=== PATIENT | female | born 1975 | race Caucasian/White ===

== ENCOUNTER 2016-03-25 12:48 | Day surgery (SDC) | payer OTHER, MEDICAID ==
[2016-03-25] MEDS ORDERED: MIDAZOLAM 2 MG/2 ML VIAL ONE (14:31)
[2016-03-25] MEDS ORDERED: fentaNYL 100 MCG/2 ML INJ ONE (14:31)
[2016-03-25] MEDS ORDERED: TRIAMCINOLONE ACETONIDE 200 MG/5 ML MDV IM ONE (15:22)
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
== END 2016-03-25 16:30 | disposition home or self-care (01) ==
LOC: FIMAGING 12:48
PROVIDERS: ATTEND Registered Nurse
PROC: 3E0S3BZ Introduction of Anesthetic Agent into Epidural Space, Percutaneous Approach (ICD-10-PCS; principal; 2016-03-25 15:30)
DX: M47.22 Other spondylosis with radiculopathy, cervical region (principal); G89.4 Chronic pain syndrome; F32.9 Major depressive disorder, single episode, unspecified; G40.909 Epilepsy, unspecified, not intractable, without status epilepticus; R51 Headache; M12.88 Other specific arthropathies, not elsewhere classified, other specified site; M54.6 Pain in thoracic spine; Q05.9 Spina bifida, unspecified
CPT/HCPCS: 0228T; 99152; J2250; J3010; J3301

== ENCOUNTER 2016-09-23 12:00 | Day surgery (SDC) | payer OTHER, MEDICAID ==
[2016-09-23 13:16] VITALS: PULSE 109
[2016-09-23] MEDS ORDERED: LR 1,000 ML IV ONE (13:49)
--- NOTE | 2016-09-23 15:05 | PDANEPAE ---
ANE Past Medical History - Cardiovascular History Hx Hypertension: No Hx Arrhythmias: No Hx Chest Pain: No Hx Coronary Artery / Peripheral Vascular Disease: No Hx CHF / Valvular Disease: No Hx Palpitations: No - Pulmonary History Hx COPD: No Hx Asthma/Reactive Airway Disease: No Hx Recent Upper Respiratory Infection: No Hx Oxygen in Use at Home: No Hx Sleep Apnea: No Sleep Apnea Screening Result - Last Documented: Negative - Neurologic History Hx Cerebrovascular Accident: Yes Hx Seizures: Yes Hx Dementia: No Neurologic History Comment: headaches. executive vp shunt. seizures- last one was a few months ago per mother. chiari malformation. spina bifida. CERVICAL RADICULOPATHY - Endocrine History Hx Diabetes: No - Renal History Hx Renal Disorders: Yes Renal History Comment: SELF CATHS - Liver History Hx Hepatic Disorders: No - Neurological & Psychiatric Hx Hx Neurological and Psychiatric Disorders: Yes Neurological / Psychiatric History Comment: depression. anxiety. was seeing pain management phychiatrist for awhile but they closed - Cancer History Hx Cancer: No - Congenital Disorder History Hx Congenital Disorders: Yes Congenital History Comment: SPINA BIFIDA. HYDROCEPHALUS - GI History Hx Gastrointestinal Disorders: Yes Gastrointestinal History Comment: colostomy. gerd - Other Health History Other Health History: CHRONIC PAIN SYNDROME - Chronic Pain History Chronic Pain: Yes (back) - Surgical History Prior Surgeries: AV SHUNT WITH MULTIPLE REVISIONS. C-SPINE X2 WITH FUSION. COLOSTOMY FOR STOOL INCONT. BLADDER RECONSTRUCTION FOR SELF CATHING. APPENDECTOMY. TONSILLECTOMY. UMBILICAL HERNIA. BRAIN HEMORRHAGE X 2 03/2013. PORT ANE Review of Systems - Exercise capacity METS (RN): 1 METS - Systems Neurological: Reports: seizure (Last seizure 3 mos ago (partial complex)) ANE Patient History - Allergies Allergies/Adverse Reactions: latex [Latex] Allergy (Severe, Verified 09/11/16 10:35) Anaphylaxis adhesive tape Allergy (Intermediate, Verified 09/11/16 10:35) BLISTERS vancomycin [Vancomycin] Allergy (Intermediate, Verified 09/11/16 10:35) Red Man Syndrome - Home Medications Home Medications: Acetaminophen [Tylenol 325mg (*)] 650 mg PO Q4H PRN 01/29/16 [Last Taken 01:00] Cyclobenzaprine [Flexeril 10 MG (*)] 10 mg PO TID PRN 01/29/16 [Last Taken 09/23 01:00] Gabapentin [Neurontin 300 MG (*)] 300 mg PO BID@10,12 01/29/16 [Last Taken 09/23 10:00] Herbals/Supplements -Info Only 2 ea PO DAILY 01/29/16 [Last Taken 05/27/16] Loperamide HCl [Imodium 2 mg (*)] 2 - 4 mg PO ONCE PRN 01/29/16 [Last Taken ] Omeprazole 40 mg PO BID 01/29/16 [Last Taken 09/23/16 10:00] Ranitidine HCl [Zantac] 150 mg PO BID PRN 01/29/16 [Last Taken 09/23/16 10:00] carBAMazepine ER [Carbatrol (*)] 600 mg PO DAILY 01/29/16 [Last Taken 09/23/16 10:00] carBAMazepine ER [TEGretol XR] 400 mg PO HS 01/29/16 [Last Taken 09/22/16 22:00] Pseudoephedrine HCl 30 mg PO DAILY PRN 03/22/16 [Last Taken 09/02/16] Dicyclomine 09/11/16 [Last Taken 09/23/16 01:00] Midol 09/11/16 [Last Taken 09/02/16] Zoloft 100mg (*) 200 mg PO DAILY 09/11/16 [Last Taken 09/23/16 10:00] - NPO status NPO Since - Liquids (Date): 09/23/16 NPO Since - Liquids (Time): 10:00 NPO Since - Solids (Date): 09/22/16 NPO Since - Solids (Time): 20:00 - Smoking Hx Smoking Status: Never smoked - Family Anes Hx Family Hx Anesthesia Complications: none ANE Labs/Vital Signs - Vital Signs Blood Pressure: 117/94 Heart Rate: 109 Respiratory Rate: 18 O2 Sat (%): 94 Height: 144.78 cm Weight: 86.183 kg ANE Physical Exam - Airway Neck exam: FROM Mallampati Score: Class 3 Mouth exam: normal dental/mouth exam - Pulmonary Pulmonary: no respiratory distress, no rales or rhonchi, clear to auscultation - Cardiovascular Cardiovascular: regular rate and rhythym, no murmur, rub, or gallop - ASA Status ASA Status: III ANE Anesthesia Plan Anesthesia Plan: MAC
[2016-09-23] MEDS ORDERED: INDOMETHACIN 50 MG SUPP PR PRN (15:06)
--- NOTE | 2016-09-23 15:06 | PDGENHP ---
History & Physical Chief Complaint: dysphagia, epigastric abdominal pain History of Present Illness: 40 year old female presents for evaluation of epigastirc abdominal pain. Worsened with oral intake. No alleviating fx. + dysphagia to pills. Pertinent Past, Social, Family History: PMHx: spina Bifiday Relevant Physical Exam: HEENT: anicteric,. CV: RRR +s1s2. Lungs: clear. Abd: soft, nt Cardiorespiratory Assessment: ASA 3
[2016-09-23] MEDS ORDERED: fentaNYL 100 MCG/2 ML INJ IVP PRN (15:07)
[2016-09-23] MEDS ORDERED: ONDANSETRON 4 MG/2 ML VIAL IVP PRN (15:07)
[2016-09-23] MEDS ORDERED: LR 500 ML IV PRN (15:07)
[2016-09-23] MEDS ORDERED: NALOXONE HCL 0.4 MG/ML INJ IVP PRN (15:07)
[2016-09-23] MEDS ORDERED: PROPOFOL 200 MG/20 ML VIAL ONE ×2 (15:09→15:19)
[2016-09-23] MEDS ORDERED: NS 500 ML IV SCH (15:15)
--- NOTE | 2016-09-23 15:37 | POSTANESTH ---
Post Anesthetic Evaluation Cardiovascular Status: Normal, Stable, Similar to Pre-Op Cond Respiratory Status: Normal, Stable, Similar to Pre-op Cond. Level of Consciousness/Mental Status: Can Participate in Eval, Moderately Sleepy Pain Control: Adequate, Prn Tx Ordered Nausea/Vomiting Control: Adequate, Prn Tx Ordered Complications Possibly Related to Anesthesia: None Noted
[2016-09-23 15:53] VITALS: BP 121/82
[2016-09-23 16:15] VITALS: RESP 23
[2016-09-23 16:18] VITALS: TEMP 98.1
[2016-09-23 17:13] VITALS: O2SAT 98
--- NOTE | 2016-09-24 03:10 | GPN ---
[f rep st] PROCEDURE NOTE DATE OF PROCEDURE: 09/23/2016 PROCEDURE: Esophagogastroduodenoscopy with dilation, biopsy. INDICATION: The patient is a 40-year-old female with history of spina bifida, who presents with epi gastric abdominal pain as well as dysphagia to pills. She presents for further evaluation. CONSENT: Risks, benefits, alternatives of the procedure were discussed in great detail with the pat ient. Risks of infection, bleeding, perforation, sedation were discussed. As above insignificant. ESOPHAGOGASTRODUODENOSCOPY EXAMINATION: An Olympus upper endoscope was introduced via the mouth and advanced to the esophagus. The proximal and distal esophagus were normal in appearance. Biopsies were taken of mid esophagus on the way out. The gastric junction was empirically dilated through th e scope dilating balloon with 15-18 mm. This was pulled through the esophagus. The stomach was entered and closely examined, including retroflexed views of the angularis, cardia, and fundus. The patient was noted to have erythematous mucosa in the antrum and the body of the sto mach in patchy distribution and biopsies were taken. In the gastric cardia and fundus multiple sessile diminutive polyps seen and were biopsied. The duodenal bulb and second portion of the duodenum were normal in appearance. Biopsies were taken to rule out celiac sprue. IMPRESSION: 1. Empiric dilation of the esophagus. 2. Biopsies taken to rule out eosinophilic esophagitis. 3. Gastritis, status post biopsy. 4. Process biopsies. 5. Biopsies taken to rule out celiac sprue. RECOMMENDATIONS: 1. Await biopsy results. 2. Consider PPI therapy. 3. Follow up with Chio Viveros in our office in 3 weeks as directed. /[id number]/MODL
== END 2016-09-23 18:15 | disposition home or self-care (01) ==
LOC: FSGY 12:00
PROVIDERS: ATTEND Internal Medicine Gastroenterology
PROC: 0D748ZZ Dilation of Esophagogastric Junction, Via Natural or Artificial Opening Endoscopic (ICD-10-PCS; principal; 2016-09-23 13:30)
PROC: 0DB98ZX Excision of Duodenum, Via Natural or Artificial Opening Endoscopic, Diagnostic (ICD-10-PCS; principal; 2016-09-23 13:30)
PROC: 0DB68ZX Excision of Stomach, Via Natural or Artificial Opening Endoscopic, Diagnostic (ICD-10-PCS; principal; 2016-09-23 13:30)
DX: K29.70 Gastritis, unspecified, without bleeding (principal); K31.7 Polyp of stomach and duodenum; R13.10 Dysphagia, unspecified; Q05.3 Sacral spina bifida with hydrocephalus; G40.909 Epilepsy, unspecified, not intractable, without status epilepticus; K59.00 Constipation, unspecified
CPT/HCPCS: 43239; 43249; C1726; J1642; J2704

== ENCOUNTER → 2017-03-27 | Outpatient (CLI) | payer OTHER, MEDICAID | LOC: FIMAGING 09:07 | PROVIDERS: ATTEND Family Medicine | DX: M46.94 Unspecified inflammatory spondylopathy, thoracic region (principal); M47.894 Other spondylosis, thoracic region ==

== ENCOUNTER 2017-04-16 12:59 | Day surgery (SDC) | payer OTHER, MEDICAID ==
[2017-04-16] MEDS ORDERED: MIDAZOLAM 2 MG/2 ML VIAL IVP PRN (13:35)
[2017-04-16] MEDS ORDERED: PROTAMINE SULFATE 50 MG/5 ML VIAL IVP PRN (13:35)
[2017-04-16] MEDS ORDERED: GLUCAGON HCL 1 MG VIAL IVP PRN (13:35)
[2017-04-16] MEDS ORDERED: NALOXONE HCL 0.4 MG/ML INJ IVP PRN (13:35)
[2017-04-16] MEDS ORDERED: FLUMAZENIL 0.5 MG/5 ML MDV IVP PRN (13:35)
[2017-04-16] MEDS ORDERED: MEPERIDINE 25 MG/ML SYR IVP PRN (13:35)
[2017-04-16] MEDS ORDERED: fentaNYL 100 MCG/2 ML INJ IVP PRN (13:35)
[2017-04-16] MEDS ORDERED: NS 1,000 ML IV SCH (13:45)
[2017-04-16 14:26] VITALS: TEMP 100
--- NOTE | 2017-04-16 15:40 | PDPROPOC ---
Sedation Plan of Care Sedation Plan of Care: vital signs stable, mental status noted, patient educated of risks, benefits, alternatives, patient can tolerate sedation ASA Classification: ASA 3 Planned drugs: fentanyl, midazolam Mallampati Score: Class 2 Mallampati Reference Image: Patient passed 3-3-2 rule?: Yes
--- NOTE | 2017-04-16 15:41 | PDGENHP ---
History & Physical Chief Complaint: RECURRENT BACK PAIN History of Present Illness: RECURRENT MID BACK PAIN Pertinent Past, Social, Family History: SPINA BIFIDA Relevant Physical Exam: ALERT AND ORIENTED. Cardiorespiratory Assessment: RRR, CTA
[2017-04-16] MEDS ORDERED: MIDAZOLAM 2 MG/2 ML VIAL ONE (16:08)
[2017-04-16] MEDS ORDERED: fentaNYL 100 MCG/2 ML INJ ONE (16:09)
[2017-04-16] MEDS ORDERED: LIDOCAINE 1% 300 MG/30 ML SDV ONE (16:38)
[2017-04-16] MEDS ORDERED: TRIAMCINOLONE ACETONIDE 200 MG/5 ML MDV IM ONE (16:39)
[2017-04-16] MEDS ORDERED: ONDANSETRON 4 MG/2 ML VIAL IVP PRN (17:00)
--- NOTE | 2017-04-16 17:01 | PDRADPN ---
Radiology Procedure Note Date of Procedure: 04/16/17 Radiologist: Remedios Mora Anesthesia: IV Sedation Pre-op Diagnosis: back pain Post-op Diagnosis: same Indication: back pain Procedure: T7-8 mayra Finding(s): MAYRA covered T6-9 Inf/Abcess present in the surg proc area at time of surgery?: No Complications: none
[2017-04-16 17:04] VITALS: PULSE 105
[2017-04-16 17:26] VITALS: RESP 13
[2017-04-16 17:37] VITALS: BP 120/96; O2SAT 97
== END 2017-04-16 18:09 | disposition home or self-care (01) ==
LOC: FIMAGING 12:59 → MERGE 13:00 → FIMAGING 18:09
PROVIDERS: ATTEND Radiology Diagnostic Radiology
DX: M54.6 Pain in thoracic spine (principal); Q05.9 Spina bifida, unspecified
CPT/HCPCS: J1642; J2250; J3010; J3301

== ENCOUNTER → 2017-05-16 | Outpatient (CLI) | payer OTHER, MEDICAID | LOC: FIMAGING 10:34 | PROVIDERS: ATTEND Physician Assistant | DX: K82.8 Other specified diseases of gallbladder (principal) | CPT/HCPCS: 78227; A9537; J1642 ==

== ENCOUNTER 2017-05-26 19:00 | Emergency (ER) | payer OTHER, MEDICAID ==
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
[2017-05-26] MEDS ORDERED: HYDROCODONE/APAP 5/325 TAB ONE (20:15)
[2017-05-26] MEDS ORDERED: HYDROCODONE/APAP 5/325 TAB PO ONE (20:16)
[2017-05-26 20:17] VITALS: BP 128/96
== END 2017-05-26 20:29 | disposition home or self-care (01) ==
LOC: EDUNIT#
DX: S09.90XA Unspecified injury of head, initial encounter (principal); S16.1XXA Strain of muscle, fascia and tendon at neck level, initial encounter; Z91.040 Latex allergy status; W22.8XXA Striking against or struck by other objects, initial encounter

== ENCOUNTER → 2017-05-30 | Outpatient (CLI) | payer OTHER, MEDICAID | LOC: FIMAGING 08:53 | PROVIDERS: ATTEND Surgery | DX: R10.11 Right upper quadrant pain (principal); K82.4 Cholesterolosis of gallbladder ==

== ENCOUNTER → 2017-06-09 | Outpatient (CLI) | payer OTHER, MEDICAID ==
[~2017-06-09] MED LIST: IOPAMIDOL (ISOVUE-300) 100 ML BTL ONE
== END ==
LOC: FIMAGING 09:01
PROVIDERS: ATTEND Surgery
DX: N21.0 Calculus in bladder (principal); R19.02 Left upper quadrant abdominal swelling, mass and lump; K43.5 Parastomal hernia without obstruction or gangrene
CPT/HCPCS: 74177; Q9967

== ENCOUNTER 2017-06-24 09:22 | Inpatient (IN) | payer OTHER, MEDICAID ==
[~2017-06-24 09:22] MED LIST changes: -IOPAMIDOL (ISOVUE-300) 100 ML BTL ONE; +cefOXitin SODIUM 2 GM in STERILE WATER INJ 21 ML IV ONE
[2017-06-24] MEDS ORDERED: BUPIVACAINE 0.5% 30 ML SDV ONE (09:56)
[2017-06-24] MEDS ORDERED: fentaNYL 100 MCG/2 ML INJ ONE ×4 (10:55→14:21)
[2017-06-24] MEDS ORDERED: PROPOFOL 200 MG/20 ML VIAL ONE ×2 (10:55→10:56)
[2017-06-24] MEDS ORDERED: ROCURONIUM 50 MG/5 ML VIAL ONE ×2 (10:59→12:39)
[2017-06-24] MEDS ORDERED: LIDOCAINE 2% 5 ML SDV ONE (11:00)
[2017-06-24] MEDS ORDERED: LR 1,000 ML IV ONE (11:04)
--- NOTE | 2017-06-24 11:11 | PDHPUP ---
History & Physical Update H&P update statement: This history and physical update is based on an assessment of the patient which was completed after admission or registration (within 24 hours), but prior to the surgery/procedure. H&P update: H&P reviewed & patient examined, no change in patient's condition since H&P completed
[2017-06-24] MEDS ORDERED: MIDAZOLAM 2 MG/2 ML VIAL ONE (11:25)
[2017-06-24] MEDS ORDERED: DEXAMETHASONE 4 MG/ML VIAL ONE (11:46)
[2017-06-24] MEDS ORDERED: ESMOLOL HCL 100 MG/10 ML VIAL IV ONE (11:50)
[2017-06-24] MEDS ORDERED: MIDAZOLAM 2 MG/2 ML VIAL IVP ONE (11:51)
--- NOTE | 2017-06-24 11:57 | PDANEPAE ---
ANE History of Present Illness parastomal hernia repair ANE Past Medical History - Cardiovascular History Hx Hypertension: No Hx Arrhythmias: No Hx Chest Pain: No Hx Coronary Artery / Peripheral Vascular Disease: No Hx CHF / Valvular Disease: No Hx Palpitations: No - Pulmonary History Hx COPD: No Hx Asthma/Reactive Airway Disease: No Hx Recent Upper Respiratory Infection: No Hx Oxygen in Use at Home: No Hx Sleep Apnea: No Sleep Apnea Screening Result - Last Documented: Negative - Neurologic History Hx Cerebrovascular Accident: No Hx Seizures: Yes Hx Dementia: No Neurologic History Comment: Shunt, seizure disorder, stroke from last shunt revision-hemorrhaging 2014 - Endocrine History Hx Diabetes: No - Renal History Hx Renal Disorders: Yes Renal History Comment: "port" catheter, bladder augmentations- Pt does self- cath w/straight caths - - Liver History Hx Hepatic Disorders: No - Neurological & Psychiatric Hx Hx Neurological and Psychiatric Disorders: Yes Neurological / Psychiatric History Comment: depression, emotionally delayed, some cognitive impairment per pt's mother. - Cancer History Hx Cancer: No - Congenital Disorder History Hx Congenital Disorders: Yes Congenital History Comment: spina bifida - GI History Hx Gastrointestinal Disorders: Yes Gastrointestinal History Comment: GERD;hernia at colostomy stoma site. - Other Health History Other Health History: CHRONIC PAIN SYNDROME- tx w/Gabapentin and muscle relaxant. - Chronic Pain History Chronic Pain: Yes (spine) - Surgical History Prior Surgeries: previous epidural injections,numerous shunt repairs/revisions , hernia repairs, hydrocephalus, bladder repair, colostomy placement ANE Review of Systems Review of Systems: - Exercise capacity METS (RN): 2 METS ANE Patient History - Allergies Allergies/Adverse Reactions: latex [Latex] Allergy (Severe, Verified 09/11/16 10:35) Anaphylaxis adhesive tape Allergy (Intermediate, Verified 09/11/16 10:35) BLISTERS vancomycin [Vancomycin] Allergy (Intermediate, Verified 09/11/16 10:35) Red Man Syndrome silver [From Tegaderm AG Mesh] Allergy (Verified 06/23/17 18:03) Rash - Home Medications Home medications: home medication list seen and reviewed Home Medications: Acetaminophen [Tylenol 325mg (*)] 1,300 mg PO TID PRN 01/29/16 [Last Taken 1 Week Ago ~06/17/17] Omeprazole 40 mg PO DAILY@22 01/29/16 [Last Taken 06/24/17 08:00] Ranitidine HCl [Zantac] 150 mg PO BID PRN 01/29/16 [Last Taken 2 Weeks Ago ~] carBAMazepine ER [TEGretol XR] 400 mg PO BID@01/29/16 [Last Taken 08:00] Cyclobenzaprine [Flexeril 10 MG (*)] 10 mg PO TID PRN 04/08/17 [Last Taken 06/23] DULoxetine [Cymbalta 60 MG (*)] 60 mg PO DAILY10 04/08/17 [Last Taken 06/24/17 08:00] Dicyclomine [Bentyl 10 MG (*)] 10 mg PO BID PRN 04/08/17 [Last Taken 2 Days Ago ~06/22/17] Gabapentin [Neurontin 300 MG (*)] 300 mg PO BID@04/08/17 [Last Taken 06/24 08:00] carBAMazepine [Tegretol Xr] 200 mg PO DAILY10 04/08/17 [Last Taken 06/24/17 08: 00] Ibuprofen [Motrin (*)] 400 mg PO DAILY PRN 06/23/17 [Last Taken 06/21/17] Multivitamins [Multivitamin (*)] 1 each PO DAILY10 06/23/17 [Last Taken 1 Week Ago ~06/17/17] Omeprazole 20 mg PO DAILY10 06/23/17 [Last Taken 06/24/17 08:00] - NPO status NPO Since - Liquids (Date): 06/24/17 NPO Since - Liquids (Time): 08:00 NPO Since - Solids (Date): 06/22/17 NPO Since - Solids (Time): 18:00 - Smoking Hx Smoking Status: Never smoked - Family Anes Hx Family Hx Anesthesia Complications: none ANE Labs/Vital Signs - Vital Signs Blood Pressure: 129/93 Heart Rate: 107 Respiratory Rate: 16 O2 Sat (%): 93 Height: 144.78 cm Weight: 90.718 kg ANE Physical Exam - Airway Neck exam: decreased ROM Mallampati Score: Class 2 Mouth exam: poor dentition - Pulmonary Pulmonary: no respiratory distress - Cardiovascular Cardiovascular: regular rate and rhythym - ASA Status ASA Status: III ANE Anesthesia Plan Anesthesia Plan: general endotracheal anesthesia Urgent/Emergent Case: Harpreet rothman completed preop but documented later for safe timely pt care
--- NOTE | 2017-06-24 12:38 | POSTANESTH ---
Post Anesthetic Evaluation Cardiovascular Status: Normal, Stable Respiratory Status: Normal, Stable Level of Consciousness/Mental Status: Can Participate in Eval Pain Control: Adequate, Prn Tx Ordered Nausea/Vomiting Control: Adequate, Prn Tx Ordered Complications Possibly Related to Anesthesia: None Noted
[2017-06-24] MEDS ORDERED: HYDROmorphONE/DILAUDID 2 MG/ML INJ ONE (12:51)
[2017-06-24] MEDS ORDERED: ONDANSETRON 4 MG/2 ML VIAL ONE (13:14)
[2017-06-24] MEDS ORDERED: SUGAMMADEX SODIUM 200 MG/2 ML VIAL IVP ONE (13:14)
[2017-06-24] MEDS ORDERED: KETOROLAC 30 MG/1 ML SDV ONE (13:14)
[2017-06-24] MEDS ORDERED: ALBUTEROL 3 ML DEYVIAL IH PRN (13:17)
[2017-06-24] MEDS ORDERED: oxyCODONE IR 5 MG TAB PO PRN (13:17)
[2017-06-24] MEDS ORDERED: HYDROCODONE/APAP 5/325 TAB PO PRN (13:17)
[2017-06-24] MEDS ORDERED: LABETALOL HCL 5 MG/ML 20 ML MDV IVP PRN (13:17)
[2017-06-24] MEDS ORDERED: HYDROmorphONE/DILAUDID 2 MG/ML INJ IVP PRN (13:17)
[2017-06-24] MEDS ORDERED: ONDANSETRON 4 MG/2 ML VIAL IVP PRN ×2 (13:17→13:47)
[2017-06-24] MEDS ORDERED: LR 500 ML IV PRN (13:17)
[2017-06-24] MEDS ORDERED: NALOXONE HCL 0.4 MG/ML INJ IVP PRN (13:17)
[2017-06-24] MEDS ORDERED: ACETAMINOPHEN 500 MG TAB PO PRN (13:17)
[2017-06-24] MEDS ORDERED: HYDROmorphone HCL 0.5 MG/0.5 ML SYR IVP PRN (13:30)
--- NOTE | 2017-06-24 13:45 | POSTOPPROG ---
Post Op Note Date of Operation: 06/24/17 Surgeon: Jorgito Carrion Director Of Architecture: Lauren Leigh Anesthesiologist: Sj Galvan Anesthesia: GET(General Endotracheal) Pre-op Diagnosis: recurrent parastomal hernia Post-op Diagnosis: same Procedure: open parastomal hernia repair with removal of old mesh Findings: 5 cm defect. +adhesions. stoma proven patent after repair. Inf/Abcess present in the surg proc area at time of surgery?: No EBL: Minimal Complications: none Specimen(s): mesh to pathology
[2017-06-24] MEDS ORDERED: NON-FORMULARY NEW DRUG (Ranitidine Hcl [Zantac] 150 MG) PO PRN (13:48)
[2017-06-24] MEDS ORDERED: FAMOTIDINE 20 MG TAB PO PRN (13:55)
[2017-06-24] MEDS: fentaNYL 100 MCG/2 ML INJ IVP PRN ×2 (14:23→14:30)
[2017-06-24] MEDS: D5W NS 1,000 ML IV SCH (17:35)
[2017-06-24] MEDS: KETOROLAC 15 MG/1 ML SDV IVP SCH ×2 (18:01→23:44)
[2017-06-24] MEDS: cefOXitin SODIUM 1 GM in STERILE WATER INJ 10.5 ML IV SCH ×2 (18:01→23:44)
[2017-06-24] MEDS: OXYCODONE/APAP 5/325 TAB PO PRN (19:47)
[2017-06-24] MEDS ORDERED: NON-FORMULARY NEW DRUG (Omeprazole [Omeprazole] 40 MG) PO SCH (22:00)
[2017-06-24] MEDS: DOCUSATE SODIUM 100 MG CAP PO SCH (22:22)
[2017-06-24] MEDS: carBAMazepine ER 400 MG TAB PO SCH (22:22)
[2017-06-24] MEDS: GABAPENTIN 300 MG CAP PO SCH (22:22)
[2017-06-24] MEDS: PANTOPRAZOLE SODIUM 40 MG TAB PO SCH (22:22)
[2017-06-24] MEDS: HYDROmorphone HCL/NS 0.5 MG/ML SYR IVP PRN (22:44)
[2017-06-25] MEDS: OXYCODONE/APAP 5/325 TAB PO PRN ×4 (04:36→21:14)
[2017-06-25] MEDS: cefOXitin SODIUM 1 GM in STERILE WATER INJ 10.5 ML IV SCH (04:37)
[2017-06-25] MEDS: KETOROLAC 15 MG/1 ML SDV IVP SCH ×4 (04:37→23:56)
--- NOTE | 2017-06-25 09:40 | ASMTCASEMG ---
Living Arrangements What is your living Answers: With One Parent arrangement? Who do you live with? Type Of Residence What kind of residence do Answers: House you live in? Discharge Plan Comments Coordination Status Comments Notes: Pt is a 41 y/o female admitted for a parastoma hernia. Pt had surgery yesterday. PT and wound care has been ordered and awaiting recommendations. Needs are TBD at this time. CM to follow. Plan: TBD Date Signed: 06/25/2017 09:39 AM Electronically Signed By:MADAI Martinez
[2017-06-25] MEDS: carBAMazepine ER 400 MG TAB PO SCH ×2 (09:42→21:14)
[2017-06-25] MEDS: GABAPENTIN 300 MG CAP PO SCH ×2 (09:42→21:14)
[2017-06-25] MEDS: carBAMazepine ER 200 MG TAB PO SCH (09:42)
[2017-06-25] MEDS: DOCUSATE SODIUM 100 MG CAP PO SCH ×2 (09:42→21:15)
[2017-06-25] MEDS: PANTOPRAZOLE SODIUM 40 MG TAB PO SCH ×2 (09:42→21:15)
[2017-06-25] MEDS: DULoxetine 60 MG CAP PO SCH (09:42)
[2017-06-25] MEDS: D5W NS 1,000 ML IV SCH ×2 (09:46→17:27)
[2017-06-25] MEDS ORDERED: NON-FORMULARY NEW DRUG (Omeprazole [Omeprazole] 20 MG) PO SCH (10:00)
--- NOTE | 2017-06-25 10:48 | SOAPPROG ---
SOAP Progress Note Assessment/Plan: Assessment: 41 y/o female s/p parastomal hernia repair and removal of old mesh POD #1 S: No complaints. Pain well controlled. Denies passing flatus or stool into appliance. O: Alert Afebrile No increased WOB Abdomen: distended, hypoactive bowel sounds, dressings cdi, ostomy is pink. No output in appliance Plan: Pt on light diet, but advised to move slowly. Continue to await return of bowel function. 06/25/17 10:45 Objective: Vital Signs Temp Pulse Resp BP Pulse Ox 36.9 C 99 12 100/78 93 06/25/17 09:34 06/25/17 09:34 06/25/17 09:34 06/25/17 09:34 06/25/17 09:34 Laboratory Results 06/25/17 06:15 06/25/17 04:54 06/24/17 06/25/17 06/26/17 05:59 05:59 05:59 Intake Total 1320 Output Total 525 125 Balance 795 -125 ICD10 Worksheet Patient Problems: Problems Problem Status Onset Hydrocephalus Acute Hypokalemia Acute Spina bifida Acute UTI (urinary tract infection) Acute
[2017-06-25] MEDS: HYDROmorphone HCL/NS 0.5 MG/ML SYR IVP PRN ×3 (11:24→13:38)
[2017-06-25] MEDS ORDERED: NS 1,000 ML IV ONE (13:57)
--- NOTE | 2017-06-25 15:18 | PDMN ---
Medical Necessity Medical necessity: Change to IP, as of 06/25/17, per [employer]; los >2 mn for ongoing evaluation s/p parastomal hernia repair & removal of old mesh POD #1; awaiting return of bowel function; admit for further monitoring; per progress note & order 06/25/17
--- NOTE | 2017-06-25 18:37 | SOAPPROG ---
SOAP Progress Note Assessment/Plan: Assessment: AFEBRILE/OSTOMY OKAY/ABDOMEN SOFT NONTENDER/WOUND OKAY/ NO FLATUS OR BM YET Plan: CLEARS IN THE A.M. 06/25/17 18:36 Objective: Vital Signs Temp Pulse Resp BP Pulse Ox 36.8 C 98 16 105/71 96 06/25/17 15:15 06/25/17 15:15 06/25/17 15:15 06/25/17 15:15 06/25/17 15:15 Laboratory Results 06/25/17 06:15 06/25/17 04:54 06/24/17 06/25/17 06/26/17 05:59 05:59 05:59 Intake Total 1320 240 Output Total 525 400 Balance 795 -160 ICD10 Worksheet Patient Problems: Problems Problem Status Onset Hydrocephalus Acute Hypokalemia Acute Spina bifida Acute UTI (urinary tract infection) Acute
[2017-06-26] MEDS: KETOROLAC 15 MG/1 ML SDV IVP SCH ×3 (05:02→17:47)
[2017-06-26] MEDS: OXYCODONE/APAP 5/325 TAB PO PRN ×3 (05:03→20:40)
[2017-06-26] MEDS: DULoxetine 60 MG CAP PO SCH (08:26)
[2017-06-26] MEDS: GABAPENTIN 300 MG CAP PO SCH ×2 (08:26→20:39)
[2017-06-26] MEDS: DOCUSATE SODIUM 100 MG CAP PO SCH ×2 (08:27→20:39)
[2017-06-26] MEDS: carBAMazepine ER 200 MG TAB PO SCH (08:27)
[2017-06-26] MEDS: DICYCLOMINE 10 MG CAP PO PRN (08:27)
[2017-06-26] MEDS: carBAMazepine ER 400 MG TAB PO SCH ×2 (08:27→20:39)
[2017-06-26] MEDS: PANTOPRAZOLE SODIUM 40 MG TAB PO SCH ×2 (08:27→20:39)
[2017-06-26] MEDS ORDERED: ENOXAPARIN 40 MG/0.4 ML SYR SC SCH (09:00)
[2017-06-26] MEDS: HYDROmorphone HCL/NS 0.5 MG/ML SYR IVP PRN ×2 (09:45→10:50)
[2017-06-26] MEDS: D5W NS 1,000 ML IV SCH ×2 (10:59→20:55)
--- NOTE | 2017-06-26 12:34 | SOAPPROG ---
SOAP Progress Note Assessment/Plan: Assessment: 41 y/o female s/p parastomal hernia repair and removal of old mesh POD #1 S: No complaints. Pain well controlled. Denies passing flatus or stool into appliance. O: Alert Afebrile No increased WOB Abdomen: distended, hypoactive bowel sounds, dressings cdi, ostomy is pink. No output in appliance Plan: Pt on light diet, but advised to move slowly. Continue to await return of bowel function. 06/25/17 10:45 06/26/17 12:31 POD#2. Alert. Afebrile. Pain controlled. Denies passing gas or stool into appliance as of yet. Hypoactive bowel sounds. Had a bout of nausea yesterday after eating scrambled eggs. Will switch to clear liquid diet. Continue to await return of bowel function. Objective: Vital Signs Temp Pulse Resp BP Pulse Ox 36.9 C 103 H 19 114/92 H 92 06/26/17 11:07 06/26/17 11:07 06/26/17 11:07 06/26/17 11:07 06/26/17 11:07 Laboratory Results 06/25/17 06:15 06/25/17 04:54 06/25/17 06/26/17 06/27/17 05:59 05:59 05:59 Intake Total 1320 490 Output Total 525 400 705 Balance 795 90 -705 ICD10 Worksheet Patient Problems: Problems Problem Status Onset Hydrocephalus Acute Hypokalemia Acute Spina bifida Acute UTI (urinary tract infection) Acute
[2017-06-26] MEDS: ENOXAPARIN 40 MG/0.4 ML SYR SC SCH (20:41)
[2017-06-27] MEDS: KETOROLAC 15 MG/1 ML SDV IVP SCH ×4 (01:01→18:24)
[2017-06-27] MEDS: HYDROmorphone HCL/NS 0.5 MG/ML SYR IVP PRN ×5 (06:43→21:48)
[2017-06-27] MEDS: D5W NS 1,000 ML IV SCH (07:12)
--- NOTE | 2017-06-27 09:27 | SOAPPROG ---
SOAP Progress Note Assessment/Plan: Assessment: 41 y/o female s/p parastomal hernia repair and removal of old mesh POD #1 S: No complaints. Pain well controlled. Denies passing flatus or stool into appliance. O: Alert Afebrile No increased WOB Abdomen: distended, hypoactive bowel sounds, dressings cdi, ostomy is pink. No output in appliance Plan: Pt on light diet, but advised to move slowly. Continue to await return of bowel function. 06/25/17 10:45 06/26/17 12:31 POD#2. Alert. Afebrile. Pain controlled. Denies passing gas or stool into appliance as of yet. Hypoactive bowel sounds. Had a bout of nausea yesterday after eating scrambled eggs. Will switch to clear liquid diet. Continue to await return of bowel function. 06/27/17 09:25 POD#3. Alert. Afebrile. Pain controlled. Still not passing gas or stool through ostomy. Hypoactive bowel sounds, but more active than yesterday. No nausea since yesterday. Tolerating clears well. Will order Miralax to help move her bowels. Objective: Vital Signs Temp Pulse Resp BP Pulse Ox 36.9 C 106 H 18 112/78 97 06/27/17 08:00 06/27/17 08:00 06/27/17 08:00 06/27/17 08:00 06/27/17 08:00 Laboratory Results 06/25/17 06:15 06/25/17 04:54 06/26/17 06/27/17 06/28/17 05:59 05:59 05:59 Intake Total 386 7936 Output Total 400 1230 Balance 90 5907 ICD10 Worksheet Patient Problems: Problems Problem Status Onset Hydrocephalus Acute Hypokalemia Acute Spina bifida Acute UTI (urinary tract infection) Acute
[2017-06-27] MEDS: OXYCODONE/APAP 5/325 TAB PO PRN ×2 (09:32→18:24)
[2017-06-27] MEDS: DICYCLOMINE 10 MG CAP PO PRN (10:15)
[2017-06-27] MEDS: POLYETHYLENE GLYCOL 3350 17 GM PKT PO SCH (10:15)
[2017-06-27] MEDS: DULoxetine 60 MG CAP PO SCH (10:16)
[2017-06-27] MEDS: carBAMazepine ER 400 MG TAB PO SCH ×2 (10:16→21:48)
[2017-06-27] MEDS: PANTOPRAZOLE SODIUM 40 MG TAB PO SCH ×2 (10:16→21:48)
[2017-06-27] MEDS: GABAPENTIN 300 MG CAP PO SCH ×2 (10:17→21:48)
[2017-06-27] MEDS: carBAMazepine ER 200 MG TAB PO SCH (10:17)
[2017-06-27] MEDS: DOCUSATE SODIUM 100 MG CAP PO SCH ×2 (10:18→21:48)
[2017-06-27] MEDS: ENOXAPARIN 40 MG/0.4 ML SYR SC SCH ×2 (10:18→21:48)
[2017-06-27] MEDS ORDERED: LORazepam 0.5 MG TAB PO PRN (14:33)
[2017-06-28] MEDS: KETOROLAC 15 MG/1 ML SDV IVP SCH ×5 (01:29→23:34)
[2017-06-28] MEDS: OXYCODONE/APAP 5/325 TAB PO PRN ×2 (07:50→14:01)
[2017-06-28] MEDS: DICYCLOMINE 10 MG CAP PO PRN (08:01)
[2017-06-28] MEDS: POLYETHYLENE GLYCOL 3350 17 GM PKT PO SCH (08:01)
[2017-06-28] MEDS: ENOXAPARIN 40 MG/0.4 ML SYR SC SCH ×2 (08:02→21:21)
[2017-06-28] MEDS: DOCUSATE SODIUM 100 MG CAP PO SCH ×2 (08:02→21:20)
[2017-06-28] MEDS: HYDROmorphone HCL/NS 0.5 MG/ML SYR IVP PRN (09:14)
[2017-06-28] MEDS: PANTOPRAZOLE SODIUM 40 MG TAB PO SCH ×2 (11:03→21:20)
[2017-06-28] MEDS: DULoxetine 60 MG CAP PO SCH (11:03)
[2017-06-28] MEDS: GABAPENTIN 300 MG CAP PO SCH ×2 (11:03→21:20)
[2017-06-28] MEDS: carBAMazepine ER 200 MG TAB PO SCH (11:03)
[2017-06-28] MEDS: carBAMazepine ER 400 MG TAB PO SCH ×2 (11:03→21:20)
--- NOTE | 2017-06-28 13:19 | SOAPPROG ---
SOAP Progress Note Assessment/Plan: Assessment/Plan: - 41yo F s/p parastomal hernia repair - VSS, HDs - abdomen is soft and aTTP - there is minimal gas and some stool in the appliance. Cont CLD until she has more robust output - discussed getting out of bed and walking 06/28/17 13:18 Subjective: sleepy, pain improved Objective: Vital Signs Temp Pulse Resp BP Pulse Ox 37.0 C 107 H 16 133/104 H 96 06/28/17 11:37 06/28/17 11:37 06/28/17 11:37 06/28/17 11:37 06/28/17 11:37 Laboratory Results 06/25/17 06:15 06/25/17 04:54 06/27/17 06/28/17 06/29/17 05:59 05:59 05:59 Intake Total 7137 2062 Output Total 1230 310 350 Balance 5907 1752 -350 ICD10 Worksheet Patient Problems: Problems Problem Status Onset Hydrocephalus Acute Hypokalemia Acute Spina bifida Acute UTI (urinary tract infection) Acute
[2017-06-28] MEDS: D5W NS 1,000 ML IV SCH (19:16)
[2017-06-29] MEDS: KETOROLAC 15 MG/1 ML SDV IVP SCH ×2 (05:19→12:15)
[2017-06-29] MEDS: OXYCODONE/APAP 5/325 TAB PO PRN ×2 (08:53→19:19)
[2017-06-29] MEDS: carBAMazepine ER 400 MG TAB PO SCH ×2 (08:55→22:21)
[2017-06-29] MEDS: PANTOPRAZOLE SODIUM 40 MG TAB PO SCH ×2 (08:55→22:21)
[2017-06-29] MEDS: DOCUSATE SODIUM 100 MG CAP PO SCH ×2 (08:55→20:16)
[2017-06-29] MEDS: carBAMazepine ER 200 MG TAB PO SCH (08:55)
[2017-06-29] MEDS: DULoxetine 60 MG CAP PO SCH (08:55)
[2017-06-29] MEDS: GABAPENTIN 300 MG CAP PO SCH ×2 (08:56→20:16)
[2017-06-29] MEDS: ENOXAPARIN 40 MG/0.4 ML SYR SC SCH ×2 (08:59→20:15)
[2017-06-29] MEDS: POLYETHYLENE GLYCOL 3350 17 GM PKT PO SCH (08:59)
--- NOTE | 2017-06-29 09:50 | SOAPPROG ---
SOAP Progress Note Assessment/Plan: Assessment/Plan: - 41yo F s/p parastomal hernia repair - VSS, HDs - abdomen remains soft. She is tolerating a diet and has more stool in the appliance today. - she still has significant amt of pain with activity, making progress - avoid benzos 06/28/17 13:18 06/29/17 09:50 Subjective: much more awake and alert today Objective: Vital Signs Temp Pulse Resp BP Pulse Ox 37.1 C 106 H 18 128/95 H 97 06/29/17 08:00 06/29/17 08:00 06/29/17 08:00 06/29/17 08:00 06/29/17 08:00 Laboratory Results 06/25/17 06:15 06/25/17 04:54 06/28/17 06/29/17 06/30/17 05:59 05:59 05:59 Intake Total 2062 2450 1666 Output Total 310 1200 225 Balance 1752 1250 1441 ICD10 Worksheet Patient Problems: Problems Problem Status Onset Hydrocephalus Acute Hypokalemia Acute Spina bifida Acute UTI (urinary tract infection) Acute
[2017-06-29] MEDS: DICYCLOMINE 10 MG CAP PO PRN (12:16)
--- NOTE | 2017-06-29 16:05 | ASMTCMCOM ---
CM Note CM Note Notes: CM met with patient briefly, patient believes she is open with [facility] (report mentioned currently ope with [facility] RN and PT). Discharge TBD. CM talked with floor RN, Torie, patient likely to d/c tomorrow and has talked with patient about referral to [facility], ideally EMDR for hx of medical trauma, this has been recommended by PCP as well. CM call to to Lisbet at [facility], informed of potential d/c tomorrow 06/30. Patient lives at home with mom. CM available to follow for further CM support. Current d/c plan: D/C home 06/30 with mom with [facility]. Date Signed: 06/29/2017 04:04 PM Electronically Signed By:Aixa Hauser
[2017-06-29] MEDS: CYCLOBENZAPRINE 10 MG TAB PO PRN ×2 (16:45→20:16)
--- NOTE | 2017-06-29 17:28 | ASMTCMCOM ---
CM Note CM Note Notes: CM met with patient to discuss referral to [facility]. Patient states she is interested but has hx of trying to connect with MH providers but felt she was not accepted and rejected. Patient states she would like to talk with mom about referral, CM left patient referral packet to [facility], CM shared it may be a bit of a process to connect but encouraged to discuss with mom and Primary Care. CM also shared info about [facility] and filled out online request for [facility] to connect with mom Judy [phone]. CM asked pt if she has LTC Medicaid, she is unsure if she does. CM to follow and CM discussed MH referral discussion with RN. Date Signed: 06/29/2017 05:28 PM Electronically Signed By:Aixa Hauser
--- NOTE | 2017-06-29 17:40 | GOP ---
[f rep st] OPERATIVE REPORT DATE OF OPERATION: 06/24/2017 SURGEON: Jorgito Carrion MD MOLD PARTER: Lauren Leigh, CORNELIO. PREOPERATIVE DIAGNOSIS: Symptomatic parastomal hernia. POSTOPERATIVE DIAGNOSIS: Symptomatic parastomal hernia. PROCEDURE PERFORMED: 1. Repair of parastomal hernia. 2. Removal of abdominal foreign body. FINDINGS: Patient was found to have a large parastomal hernia. She also had a wad of mesh from a pr evious surgery in the area, which was resected and removed. The stoma itself was viable and function al. Had a fair number of loops of small intestine in the hernia sac. DESCRIPTION OF PROCEDURE: The patient was taken to the operating room, where she received satisfacto ry general endotracheal anesthesia. She was prepped and draped in usual sterile fashion. A circular incision was made outside the stoma area, about 1 inch from the edge of the stoma. Dissection birgit ed down through subcutaneous tissue and down to the fascia. The hernia sac itself was identified. I t was dissected free from surrounding subcutaneous tissue and off the fascia. The sac was opened. E xcess sac was removed. The bowel contents were freed up and reduced back in the abdomen. The colon segment was identified and spared from injury. After delineating the anatomy, the hernia was repaire d with multiple interrupted #1 PDS [id number] sutures, securing the fascial defect down around t he colostomy segment. Wound was infiltrated with 0.5% Marcaine, and a 15 round silicone KAYLEIGH drain was brought out through a separate stab incision. The subcu was then closed with a running 2-0 Vicryl s uture. The drain was secured to the skin with a silk suture. The skin was closed with 4-0 Monocryl subcuticular sutures. It should be noted that a lateral extension was made, creating a Y-like incisi on for better exposure of the fascial defect. Her stoma was quite patent and open at the completion of the procedure. The wound was then dressed with some Dermabond. She tolerated the procedure well. Blood loss was negligible. No complications. Taken to recovery room in good condition. /[id number]/MODL
[2017-06-29] MEDS: HYDROmorphone HCL/NS 0.5 MG/ML SYR IVP PRN (22:21)
[2017-06-30] MEDS: OXYCODONE/APAP 5/325 TAB PO PRN ×3 (09:31→19:00)
[2017-06-30] MEDS: POLYETHYLENE GLYCOL 3350 17 GM PKT PO SCH (09:33)
[2017-06-30] MEDS: ENOXAPARIN 40 MG/0.4 ML SYR SC SCH ×2 (09:34→19:48)
[2017-06-30] MEDS: DULoxetine 60 MG CAP PO SCH (09:34)
[2017-06-30] MEDS: GABAPENTIN 300 MG CAP PO SCH ×2 (09:34→22:39)
[2017-06-30] MEDS: PANTOPRAZOLE SODIUM 40 MG TAB PO SCH ×2 (09:34→22:39)
[2017-06-30] MEDS: DOCUSATE SODIUM 100 MG CAP PO SCH ×2 (09:35→19:48)
[2017-06-30] MEDS: carBAMazepine ER 400 MG TAB PO SCH ×2 (09:35→22:39)
[2017-06-30] MEDS: carBAMazepine ER 200 MG TAB PO SCH (09:35)
--- NOTE | 2017-06-30 10:34 | SOAPPROG ---
SOAP Progress Note Assessment/Plan: Assessment: 41 y/o female s/p parastomal hernia repair and removal of old mesh 06/24 S: No complaints. Pain well controlled. Passing flatus and stool into ostomy bag. O: Alert Afebrile RRR No increased WOB Abdomen: mildly distended, nontender, normoactive bowel sounds, incision cdi. brown stool in appliance. Plan: Pt seen with Dr. Carrion. Continue to follow, likely home in the next couple of days. 06/30/17 10:32 Objective: Vital Signs Temp Pulse Resp BP Pulse Ox 36.8 C 92 16 102/79 95 06/30/17 08:00 06/30/17 08:00 06/30/17 08:00 06/30/17 08:00 06/30/17 08:00 Laboratory Results 06/25/17 06:15 06/25/17 04:54 06/29/17 06/30/17 07/01/17 05:59 05:59 05:59 Intake Total 7990 2866 Output Total 1200 1505 Balance 1250 1361 ICD10 Worksheet Patient Problems: Problems Problem Status Onset Hydrocephalus Acute Hypokalemia Acute Spina bifida Acute UTI (urinary tract infection) Acute
[2017-06-30] MEDS: DICYCLOMINE 10 MG CAP PO PRN (15:41)
--- NOTE | 2017-06-30 18:02 | WOCRNPDOC ---
WOCRN Advanced Assessment Note - Colostomy Assessment, Advanced Left Lower Abdomen Colostomy Stoma Colostomy Appliance Intact: Yes Colostomy Comment/Treatment Details: Two piece appliance intact and funcitoning. The appliance is over the top of a surgical wound that has been approximated with glue. As pouch is working well it is best to leave it intact for now and not disturb the incision site unless it is due to be change. Do not place a dressing over the incision. Discussed plan with Lauren NUNES. Will reapply dermabond on Fri with pouch change. Wafer should be checked according to policy Q shift for viability and should be gently and promptly changed if odor or any shadowing of stool on any part of the outside of the barrier. Do not tape the edges of the barrier down as it will reinforce a leaking pouch that has already failed for longer and the stool can sit in/on the incision site for more time.
[2017-07-01] MEDS: OXYCODONE/APAP 5/325 TAB PO PRN ×2 (06:31→11:15)
--- NOTE | 2017-07-01 09:05 | SOAPPROG ---
SOAP Progress Note Assessment/Plan: Assessment/Plan: 41 Y F s/p parastomal hernia repair, POD# 7. Pain improved. Ostomy with good output and good seal. Tolerating diet. Wounds ok. Hernia repair intact. D/c drain. Change ostomy appliance today. Dispo: to home today. S: feeling ready to go home. "sore" O: alert, nad ctab rrr abd soft, inc cdi, no erythema, drain scant serosanguinous. +soft stool in bag. 07/01/17 09:03 Objective: Vital Signs Temp Pulse Resp BP Pulse Ox 36.9 C 92 18 101/78 93 07/01/17 08:00 07/01/17 08:00 07/01/17 08:00 07/01/17 08:00 07/01/17 08:00 Laboratory Results 06/25/17 06:15 06/25/17 04:54 06/30/17 07/01/17 07/02/17 05:59 05:59 05:59 Intake Total 2866 750 Output Total 1505 1330 Balance 1361 -580 ICD10 Worksheet Patient Problems: Problems Problem Status Onset Hydrocephalus Acute Hypokalemia Acute Spina bifida Acute UTI (urinary tract infection) Acute
[2017-07-01] MEDS: carBAMazepine ER 400 MG TAB PO SCH (09:22)
[2017-07-01] MEDS: PANTOPRAZOLE SODIUM 40 MG TAB PO SCH (09:23)
[2017-07-01] MEDS: GABAPENTIN 300 MG CAP PO SCH (09:23)
[2017-07-01] MEDS: DOCUSATE SODIUM 100 MG CAP PO SCH (09:23)
[2017-07-01] MEDS: POLYETHYLENE GLYCOL 3350 17 GM PKT PO SCH (09:23)
[2017-07-01] MEDS: DULoxetine 60 MG CAP PO SCH (09:23)
[2017-07-01] MEDS: carBAMazepine ER 200 MG TAB PO SCH (09:23)
[2017-07-01] MEDS: ENOXAPARIN 40 MG/0.4 ML SYR SC SCH (09:24)
--- NOTE | 2017-07-01 09:29 | GDS ---
[f rep st] DISCHARGE SUMMARY DISCHARGE DIAGNOSES: 1. Symptomatic parastomal hernia. 2. Postoperative ileus. 3. History of spina bifida. PROCEDURES: Parastomal hernia repair with removal of abdominal foreign body. INTRAOPERATIVE FINDINGS: Patient was found to have a large parastomal hernia. She also had a lot of mesh from previous surgery in that area, which was resected and removed. The stoma itself was viabl e and functional. She had a fair number of loops of small intestine in the hernia sac. HOSPITAL COURSE: The patient is a 41-year-old female with a history of spina bifida, well known to u s from multiple surgeries, who underwent a parastomal hernia repair. The procedure was uncomplicated , and she tolerated it well. There was a piece of mesh that had balled up in the hernia that was rem fran. The procedure was uncomplicated, and she tolerated it well. No new mesh was placed, and a Desmond kson-Wolfe drain was used. The patient's postoperative course was relatively uneventful, aside from ileus and pain control issue s. Eventually, her stoma did begin to put out soft stool and so her diet was advanced. Her pain was controlled and improved over time. DISCHARGE INSTRUCTIONS: Patient was discharged to home in stable condition on postoperative day 7. Her drain was removed. She was given a prescription for oxycodone. She was restarted on all of her regular home medicines. Limitations were discussed and outlined in her discharge instructions. She is to follow up with us in 2 weeks, or sooner if she has any problems or concerns. /[id number]/MODL
--- NOTE | 2017-07-01 09:59 | ASMTCMCOM ---
CM Note CM Note Notes: Met with patient who is d/c'ing today. She does not think she needs anymore resources but would like CM to touch base with her mother. Left a message for patient's mother. CM will follow. Date Signed: 07/01/2017 09:58 AM Electronically Signed By:Irma Nova LCSW
[2017-07-01 11:11] VITALS: BP 126/95
--- NOTE | 2017-07-01 14:33 | PDIAF ---
- Diagnosis Diagnosis: s/p parastomal hernia Code Status: Full Code - Medication Management Discharge Medications: Medications to Continue on Transfer Acetaminophen [Tylenol 325mg (*)] 1,300 mg PO TID PRN 01/29/16 [Last Taken 1 Week Ago ~06/17/17] Omeprazole 40 mg PO DAILY@01/29/16 [Last Taken 06/24/17 08:00] Ranitidine HCl [Zantac] 150 mg PO BID PRN 01/29/16 [Last Taken 2 Weeks Ago ~] carBAMazepine ER [TEGretol XR] 400 mg PO BID@01/29/16 [Last Taken 08:00] Cyclobenzaprine [Flexeril 10 MG (*)] 10 mg PO TID PRN 04/08/17 [Last Taken 06/23] DULoxetine [Cymbalta 60 MG (*)] 60 mg PO DAILY10 04/08/17 [Last Taken 06/24/17 08:00] Dicyclomine [Bentyl 10 MG (*)] 10 mg PO BID PRN 04/08/17 [Last Taken 2 Days Ago ~06/22/17] Gabapentin [Neurontin 300 MG (*)] 300 mg PO BID@04/08/17 [Last Taken 06/24 08:00] carBAMazepine [Tegretol Xr] 200 mg PO DAILY10 04/08/17 [Last Taken 06/24/17 08: 00] Ibuprofen [Motrin (*)] 400 mg PO DAILY PRN 06/23/17 [Last Taken 06/21/17] Multivitamins [Multivitamin (*)] 1 each PO DAILY10 06/23/17 [Last Taken 1 Week Ago ~06/17/17] Omeprazole 20 mg PO DAILY10 06/23/17 [Last Taken 06/24/17 08:00] oxyCODONE/APAP 5/325 [Percocet 5/325 (*)] 1 - 2 tab PO Q4 PRN #30 tab 07/01/17 [ Last Taken Unknown] Discharge Medications: Refer to the Discharge Home Medication list for PRN reason. PICC Care - Routine: N/A - Orders Services needed: Home Care, Registered Nurse Home Care Face to Face: I certify that this patient was under my care and that I had the required [id number] encounter meeting the encounter requirements on the discharge day. My findings support the fact that the patient is homebound as defined in Home Care Face to Face Continued: CMS Chapter 7 Medicare Benefits Manual 30.1.1 , The condition of the patient is such that there exists a normal inability to leave home and consequently, leaving home would require a considerable and taxing effort. Isolation Type: None Diet Recommendation: no restrictions on diet Diet Texture: Regular Texture Diet Wound Care Instructions: Routine ostomy care Activity/Weight Bearing Restrictions: No lifting greater than 10-15 lbs Additional Instructions: Routine ostomy care. You will need to replace a dressing over the drain site daily or more often if it soaks through until it is healed. Ok to shower per normal. Incisions can get wet in shower. Avoid baths/pools. Regular diet. - Follow Up Care Current Providers and Referrals: Suzan Dixon MD [Primary Care Provider] - Jorgito Carrion MD [Medical Doctor] - follow up in 2 weeks
--- NOTE | 2017-07-01 14:43 | ASDISCHSUM ---
Discharge Information Plan Status:Home with Home Health Medically Cleared to Leave:07/01/2017 Discharge Date:07/01/2017 01:43 PM D/C Disposition: ADT D/C Disposition:Home, Routine, Self-Care Projected Discharge Date:07/01/2017 11:00 AM Transportation at D/C: Discharge Delay Reason: Follow-Up Date:07/01/2017 11:00 AM Discharge Slot: Final Diagnosis: Placement Information Referral Type:*Home Health Care Services Referral ID:[id number] Provider Name:[facility] Address 1:[address] [facility] [address] Address 2: City:[place] Selection Factors: State:[place] Patient Contact Information Contact Name:Kwaku Relationship:Mother Address:[address] Work Phone: City:[place] Alternate Phone: State/Zip Code:[place] [address] Email: Financial Information Financial Class:Medicare Primary Plan Desc:MEDICARE INPATIENT Primary Plan Number:[id number] Secondary Plan Desc:[place] Secondary Plan Number:[id number] Assessment Information [facility] Initial CM Assessment Living Arrangements What is your living Answers: With One Parent arrangement? Who do you live with? Type Of Residence What kind of residence do Answers: House you live in? Discharge Plan Comments Coordination Status Comments Notes: Pt is a 41 y/o female admitted for a parastoma hernia. Pt had surgery yesterday. PT and wound care has been ordered and awaiting recommendations. Needs are TBD at this time. CM to follow. Plan: TBD Date Signed: 06/25/2017 09:39 AM Electronically Signed By:MADAI Martinez [facility] CM Progress Note CM Note CM Note Notes: CM met with patient briefly, patient believes she is open with [facility] (report mentioned currently ope with [facility] RN and PT). Discharge TBD. CM talked with floor RN, Torie, patient likely to d/c tomorrow and has talked with patient about referral to [facility], ideally EMDR for hx of medical trauma, this has been recommended by PCP as well. CM call to to Lisbet at [facility], informed of potential d/c tomorrow 06/30. Patient lives at home with mom. CM available to follow for further CM support. Current d/c plan: D/C home 06/30 with mom with [facility]. Date Signed: 06/29/2017 04:04 PM Electronically Signed By:Aixa Hauser [facility] Progress Note CM Note CM Note Notes: CM met with patient to discuss referral to [facility]. Patient states she is interested but has hx of trying to connect with MH providers but felt she was not accepted and rejected. Patient states she would like to talk with mom about referral, CM left patient referral packet to P, CM shared it may be a bit of a process to connect but encouraged to discuss with mom and Primary Care. CM also shared info about [facility] and filled out online request for [facility] to connect with mom Judy [phone]. CM asked pt if she has LTC Medicaid, she is unsure if she does. CM to follow and CM discussed MH referral discussion with RN. Date Signed: 06/29/2017 05:28 PM Electronically Signed By:Aixa Hauser [facility] CM Progress Note CM Note CM Note Notes: Met with patient who is d/c'ing today. She does not think she needs anymore resources but would like CM to touch base with her mother. Left a message for patient's mother. CM will follow. Date Signed: 07/01/2017 09:58 AM Electronically Signed By:Irma Nova LCSW [facility] CM Progress Note CM Note CM Note Notes: Pt is current w/ [facility] for RN services. DES Guevara put in transfer of care orders. CM provided NIKOLAI Valentine w/ phone number to give report. CM available for changes. Plan: NIKOLAI GOLDSTEIN Date Signed: 07/01/2017 02:41 PM Electronically Signed By:MADAI Martinez Intervention Information Intervention Type:*Incorrect Registration Date of Service:06/24/2017 05:58 PM Patient Type:Inpatient Staff Member:NIKOLAI Augustine, Jocelyn Hours: Discipline: Severity: Comment: Intervention Type:*TODD-Signed Date of Service:06/25/2017 10:33 AM Patient Type:Observation Staff Member:Marilia Chapa Hours: Discipline: Severity: Comment: Intervention Type:*IM-Signed Date of Service:07/01/2017 10:23 AM Patient Type:Inpatient Staff Member:Marilia Chapa Hours: Discipline: Severity: Comment:
== END 2017-07-01 13:43 | disposition home health service (06) | DRG 354 ==
LOC: F3N 10:13 → INTOOBSV 10:13 → F3E 13:10 → OBSVTOIN 13:50 → F3E 15:33
PROVIDERS: ADMIT Surgery; ATTEND Surgery
DX: K43.5 Parastomal hernia without obstruction or gangrene (principal); K91.89 Other postprocedural complications and disorders of digestive system; G82.20 Paraplegia, unspecified; Z93.3 Colostomy status; Q05.9 Spina bifida, unspecified; K21.9 Gastro-esophageal reflux disease without esophagitis; G89.29 Other chronic pain
CPT/HCPCS: 97116-GP; 97161-GP; 97166-GO; 97530-GO; 97530-GP; 97535-GO; G8978-GP-CI; G8979-GP-CI; G8987-GO-CK; G8988-GO-CI; J0694; J1100; J1170; J1642; J1650; J1885; J2250; J2405; J2704; J3010

== ENCOUNTER → 2017-11-27 | Outpatient (CLI) | payer OTHER, MEDICAID | LOC: FIMAGING 07:48 | DX: M50.221 Other cervical disc displacement at C4-C5 level (principal); M48.02 Spinal stenosis, cervical region; Z98.890 Other specified postprocedural states ==

== ENCOUNTER 2017-12-10 07:33 | Emergency (ER) | payer OTHER, MEDICAID ==
[2017-12-10] MEDS ORDERED: ACETAMINOPHEN 325 MG TAB PO ONE (07:51)
--- NOTE | 2017-12-10 07:55 | EDPHY ---
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 Onset of fever to 103 at 0530. The fever is associated with a moderate headache. She took ibuprofen prior to arrival. No other associated symptoms. No recent illness, cough, dysuria or abdominal pain. History of cervical and thoracic pain for 3 months. Taking tramadol and Tylenol with some relief. Recent MRI of the cervical spine revealed C3-4 disc protrusion. MRI of the thoracic spine schedule for tomorrow. REVIEW OF SYSTEMS: complete 10 point ROS reviewed and is negative except for the noted elements in the HPI Source: Patient, Family - Personal History Tetanus Vaccine Date: unknown - Medical/Surgical History Hx Asthma: No Hx Chronic Respiratory Disease: No Hx Diabetes: No Hx Cardiac Disease: No Hx Renal Disease: No Hx Cirrhosis: No Hx Alcoholism: No Hx HIV/AIDS: No Hx Splenectomy or Spleen Trauma: No Other PMH: 1. Spina bifida. 2. Hydrocephalus with ventriculoperitoneal shunt status post revisions. 3. Seizure disorder. 4. Cervical stenosis, status post cervical fusion. 5. Urinary retention with urinary stoma. 6. Major depressive disorder. 7. History of headaches and chronic pain. 8. Appendectomy. 9. Colostomy - Social History Smoking Status: Never smoked Alcohol Use: None Drug Use: None - Physical Exam Exam: General Appearance: Alert, pleasant, nontoxic-appearing Eyes: Pupils equal and round, no conjunctival pallor or injection, dysconjugate gaze ENT, Mouth: Mucous membranes moist Neck: Normal inspection Respiratory: Lungs are clear to auscultation Cardiovascular: Regular rate and rhythm Gastrointestinal: Abdomen is soft and nontender Neurological: A&O, nonfocal exam Skin: Warm and dry Extremities: Normal inspection, no tenderness Psychiatric: Mood and affect normal Constitutional: Initial Vital Signs Temperature (C) 38.2 C 12/10/17 07:33 Heart Rate 121 H 12/10/17 07:33 Respiratory Rate 20 12/10/17 07:33 Blood Pressure 105/80 12/10/17 07:33 O2 Sat (%) 93 12/10/17 07:33 O2 Delivery Mode Nasal Cannula O2 (L/minute) 2 Allergies/Adverse Reactions: latex [Latex] Allergy (Severe, Verified 10/17/18 07:45) Anaphylaxis adhesive tape Allergy (Intermediate, Verified 12/10/17 07:45) BLISTERS vancomycin [Vancomycin] Allergy (Intermediate, Verified 12/10/17 07:45) Red Man Syndrome silver [From Tegaderm AG Mesh] Allergy (Verified 12/10/17 07:45) Rash Home Medications: Medication Instructions Recorded Acetaminophen [Tylenol 325mg (*)] 1,300 mg PO TID PRN 01/29/16 Omeprazole 40 mg PO DAILY@01/29/16 Ranitidine HCl [Zantac] 150 mg PO BID PRN 01/29/16 carBAMazepine ER [TEGretol XR] 400 mg PO BID@,01/29/16 Cyclobenzaprine [Flexeril 10 MG 10 mg PO TID PRN 04/08/17 (*)] Dicyclomine [Bentyl 10 MG (*)] 10 mg PO BID PRN 04/08/17 Gabapentin [Neurontin 300 MG (*)] 300 mg PO BID@04/08/17 carBAMazepine [Tegretol Xr] 200 mg PO DAILY10 04/08/17 Ibuprofen [Motrin (*)] 400 mg PO DAILY PRN 06/23/17 Multivitamins [Multivitamin (*)] 1 each PO DAILY10 06/23/17 Omeprazole 20 mg PO DAILY10 06/23/17 Cefdinir [Omnicef (*)] 300 mg PO BID #20 cap 12/10/17 Imodium 2 mg (*) 12/10/17 Miralax 17 gm (*) 12/10/17 Sudafed 12 Hour 12/10/17 Zyrtec 12/10/17 traMADol 12/10/17 Medical Decision Making - Diagnostics Imaging Results: Imaging Impressions Chest X-Ray 12/10/17 07:39 Impression: No acute abnormality, or substantial change from 05/26/17. Imaging: I viewed and interpreted images myself ED Course/Re-evaluation: This complex pt presents with fever x 2hrs. She is nontoxic appearing. Fever w /u initiated. 9am: consulted Dr. Jones, neurosurg will see pt. 0930: UA c/w UTI, pt self-caths via stoma. Could be secondary to colonization, but suspect UTI. Doubt shunt infection. Urine culture sent. Ceftriaxone 1 g IV given. Omnicef prescribed. Tramadol given for neck/back pain. Minimal KNUTSON now. 1015: seen by [facility], agrees with treatment for UTI, doubts shunt infection, will f/u with neurosurg in the office. Differential Diagnosis: Differential diagnosis includes pyelonephritis, cholecystitis, influenza, cellulitis, pneumonia, abscess, meningitis. - Data Points Laboratory Results: Laboratory Results 12/10/17 08:55 12/10/17 08:55 12/10/17 12/10/17 12/10/17 08:55 08:55 08:55 WBC RBC Hgb Hct MCV MCH MCHC RDW Plt Count MPV Neut % (Auto) Lymph % (Auto) [place] % (Auto) Eos % (Auto) Baso % (Auto) Nucleat RBC Rel Count Absolute Neuts (auto) Absolute Lymphs (auto) Absolute Monos (auto) Absolute Eos (auto) Absolute Basos (auto) Absolute Nucleated RBC Immature Gran % Immature Gran # VBG Lactic Acid 0.6 mmol/L L mmol/L (0.7-2.1) Sodium Potassium Chloride Carbon Dioxide Anion Gap BUN Creatinine Estimated GFR Glucose Calcium Urine Color YELLOW Urine Appearance MODERATELY TURBID Urine pH 6.0 (5.0-7.5) Ur Specific [place] 1.017 (1.002-1.030) Urine Protein 1+ H (NEGATIVE) Urine Ketones 1+ H (NEGATIVE) Urine Blood 1+ H (NEGATIVE) Urine Nitrate NEGATIVE (NEGATIVE) Urine Bilirubin NEGATIVE (NEGATIVE) Urine Urobilinogen NEGATIVE EU EU (0.2-1.0) Ur Leukocyte Esterase 2+ H (NEGATIVE) Urine RBC 5-10 /hpf H /hpf (0-3) Urine WBC 50-182 /hpf H /hpf (0-3) Ur Epithelial Cells 1+ /lpf /lpf (NONE-1+) Urine Mucus TRACE /lpf /lpf (NONE-1+) Urine Glucose NEGATIVE (NEGATIVE) Nasal Influenza A PCR NEGATIVE FOR FLU A (NEGATIVE) Nasal Influenza B PCR NEGATIVE FOR FLU B (NEGATIVE) 12/10/17 12/10/17 08:55 08:55 WBC 9.42 10^3/uL 10^3/uL (3.80-9.50) RBC 3.49 10^6/uL L 10^6/uL (4.18-5.33) Hgb 10.5 g/dL L g/dL (12.6-16.3) Hct 31.9 % L % (38.0-47.0) MCV 91.4 fL fL (81.5-99.8) MCH 30.1 pg pg (27.9-34.1) MCHC 32.9 g/dL g/dL (32.4-36.7) RDW 15.9 % H % (11.5-15.2) Plt Count 247 10^3/uL 10^3/uL (150-400) MPV 9.1 fL fL (8.7-11.7) Neut % (Auto) 74.7 % H % (39.3-74.2) Lymph % (Auto) 18.0 % % (15.0-45.0) [place] % (Auto) 6.5 % % (4.5-13.0) Eos % (Auto) 0.3 % L % (0.6-7.6) Baso % (Auto) 0.2 % L % (0.3-1.7) Nucleat RBC Rel Count 0.0 % % (0.0-0.2) Absolute Neuts (auto) 7.03 10^3/uL H 10^3/uL (1.70-6.50) Absolute Lymphs (auto) 1.70 10^3/uL 10^3/uL (1.00-3.00) Absolute Monos (auto) 0.61 10^3/uL 10^3/uL (0.30-0.80) Absolute Eos (auto) 0.03 10^3/uL 10^3/uL (0.03-0.40) Absolute Basos (auto) 0.02 10^3/uL 10^3/uL (0.02-0.10) Absolute Nucleated RBC 0.00 10^3/uL 10^3/uL (0-0.01) Immature Gran % 0.3 % % (0.0-1.1) Immature Gran # 0.03 10^3/uL 10^3/uL (0.00-0.10) VBG Lactic Acid Sodium 138 mEq/L mEq/L (135-145) Potassium 3.1 mEq/L L mEq/L (3.3-5.0) Chloride 105 mEq/L mEq/L (97-110) Carbon Dioxide 23 mEq/l mEq/l (22-31) Anion Gap 10 mEq/L mEq/L (6-14) BUN 10 mg/dL mg/dL (7-23) Creatinine 0.5 mg/dL L mg/dL (0.6-1.0) Estimated GFR > 60 Glucose 103 mg/dL H mg/dL (70-100) Calcium 8.5 mg/dL mg/dL (8.5-10.4) Urine Color Urine Appearance Urine pH Ur Specific [place] Urine Protein Urine Ketones Urine Blood Urine Nitrate Urine Bilirubin Urine Urobilinogen Ur Leukocyte Esterase Urine RBC Urine WBC Ur Epithelial Cells Urine Mucus Urine Glucose Nasal Influenza A PCR Nasal Influenza B PCR Medications Given: Discontinued Medications Acetaminophen (Tylenol) 650 mg PO EDNOW ONE Stop: 12/10/17 07:52 Last Admin: 12/10/17 08:18 Dose: 650 mg Ceftriaxone Sodium/Dextrose (Rocephin 1 Gm (Premix)) 50 mls @ 100 mls/hr IV EDNOW ONE PRN Reason: Protocol Stop: 12/10/17 09:52 Last Admin: 12/10/17 09:48 Dose: 50 mls Tramadol HCl (Ultram) 50 mg PO EDNOW ONE Stop: 12/10/17 10:00 Last Admin: 12/10/17 09:59 Dose: 50 mg Departure - Departure Disposition: Home, Routine, Self-Care Clinical Impression: UTI (urinary tract infection) Qualifiers: Urinary tract infection type: acute cystitis Hematuria presence: without hematuria Qualified Code(s): N30.00 - Acute cystitis without hematuria Condition: Good Instructions: Urinary Tract Infection in Women (ED) Additional Instructions: Tylenol 650mg every 4 hr as needed for fever. Referrals: David Jones MD [Medical Doctor] - As per Instructions Prescriptions: Cefdinir [Omnicef (*)] 300 mg PO BID #20 cap
[2017-12-10] MEDS ORDERED: LET GEL TOPICAL 1 EA SYR TP ONE (08:07)
[2017-12-10 09:08] LABS: PLATELET COUNT 247 10^3/uL (150-400)
[2017-12-10] MEDS ORDERED: traMADol 50 MG TAB ONE (09:57)
[2017-12-10] MEDS ORDERED: traMADol 50 MG TAB PO ONE (09:59)
[2017-12-10 10:44] VITALS: BP 108/71
--- NOTE | 2017-12-10 11:41 | GCON ---
NEUROSURGICAL CONSULTATION CHIEF COMPLAINT: Fevers. HISTORY OF PRESENT ILLNESS: The patient is a 41-year-old female with a history of congenital hydroce phalus and spina bifida, for which she has had a ventriculoperitoneal shunt for years. She has a his tory of urinary incontinence and retention with a urinary stoma. She has been having low back pain f or several months, for which she has been followed by Dr. Jones, as well as [facility]. She woke up this morning with a mild headache, but also had a fever to 103.0 degrees Fahrenheit. Her mother brou ght her to the emergency department for evaluation. She currently complains of a mild headache. She is not having any nausea or vomiting. She has been having low back pain for approximately the last month. She denies any lower extremity radicular pain, weakness, paresthesias, or ataxia. She has a longstanding history of urinary incontinence. PAST MEDICAL HISTORY: 1. Spina bifida. 2. Hydrocephalus. 3. Seizure disorder. 4. Urinary retention with stoma. 5. Major depressive disorder. 6. History of headaches and chronic pain. PAST SURGICAL HISTORY: 1. Cervical diskectomy and fusion. 2. Appendectomy. 3. Colostomy. MEDICATIONS: Please see current medication list. ALLERGIES: Patient is allergic to latex, tape, vancomycin, and silver. FAMILY HISTORY: Patient has no family history of spine problems. SOCIAL HISTORY: Patient is single and lives independently in [place]. She denies smoking, drinking, or drug use. REVIEW OF SYSTEMS: Negative. PHYSICAL EXAM: GENERAL: Patient is a 41-year-old female, lying in bed, in no apparent distress. HE ENT: Head, eyes, ears, nose, and throat are negative to drainage. EXTREMITIES: [place], warm and dry. NEUROLOGIC: Patient is awake, alert, oriented x4. Pupils equal, round, reactive to light. Extrao cular motions are intact. There is no evidence of facial droop. Tongue and uvula are midline. Spin al accessory muscles are intact. Her motor strength is physiologic in her arms and legs. Sensation is grossly intact to light touch in her arms and legs. Deep tendon reflexes are 1/4. Her left-sided valve of her COMPOSITION WORKER shunt pumps and fills adequately. LABORATORY DATA: A urinalysis from [facility] is consistent with a urinary tract inf ection. It has 2+ leukocyte esterase, with 50-180 white blood cells. IMPRESSION: This is a 41-year-old female who is seen in the emergency department for fevers, who has a urinary tract infection. She is neurologically stable. PLAN: All the above issues discussed in detail with the patient and her mother, who was present. At this point in time, her fever is likely from her urinary tract infection, and she has been started o n antibiotics by Dr. Garcia in the emergency department. She is scheduled to have an outpatient MRI to [facility] and a subsequent followup with [facility] the day after that to go over her new thoracic and l umbar MRI. We feel that it is reasonable for the patient to be discharged from the emergency departm ent on antibiotics for a urinary tract infection. We will see her in our office after completion of her MRI for adjustment of her ventriculoperitoneal shunt. She also can follow up with [facility] and [place] [facility] for further treatment of her low back pain after she completes the appro priate imaging. The mother and patient were encouraged to contact [place] [facility] i f she has any questions or concerns prior to her next followup appointment. /[id number]/MODL
== END 2017-12-10 10:44 | disposition home or self-care (01) ==
LOC: EDUNIT#
DX: N30.00 Acute cystitis without hematuria (principal); Q05.9 Spina bifida, unspecified; G91.9 Hydrocephalus, unspecified; Z98.2 Presence of cerebrospinal fluid drainage device
CPT/HCPCS: 36591; 51701; 71046; 96374; 99284; J0696; J1642

== ENCOUNTER → 2017-12-11 | Outpatient (CLI) | payer OTHER, MEDICAID | LOC: FIMAGING 07:25 | DX: M46.94 Unspecified inflammatory spondylopathy, thoracic region (principal); M51.24 Other intervertebral disc displacement, thoracic region ==

== ENCOUNTER 2018-07-31 12:32 | Inpatient (IN) | payer OTHER, MEDICAID | END 2018-08-05 11:51 | disposition home or self-care (01) | LOC: F3N 17:13 ==

== ENCOUNTER → 2018-08-17 | Outpatient (CLI) | payer OTHER, MEDICAID | LOC: FIMAGING 13:59 ==